=== PATIENT | female | born 1995 ===

== ENCOUNTER 2020-03-08 11:35 | Inpatient (IN) | payer OTHER ==
[2020-03-08] MEDS ORDERED: TERBUTALINE 1 MG/1 ML INJ IVP PRN (12:09)
[2020-03-08] MEDS ORDERED: fentaNYL 100 MCG/2 ML INJ IV PRN (12:09)
[2020-03-08] MEDS ORDERED: TERBUTALINE 1 MG/1 ML INJ SUB-Q PRN (12:09)
[2020-03-08] MEDS ORDERED: NalbUPHINE 10 MG/1 ML INJ IV PRN (12:09)
[2020-03-08] MEDS ORDERED: BUTORPHANOL 2 MG/1 ML INJ IV PRN ×2 (12:09)
[2020-03-08] MEDS ORDERED: MINERAL OIL 30 ML ORAL LIQD PO PRN (12:09)
[2020-03-08] MEDS ORDERED: ONDANSETRON 4 MG/2 ML INJ IV PRN (12:09)
[2020-03-08] MEDS ORDERED: LIDOCAINE (2%) 20 MG/1 ML VIAL 20 ML MDV INFILTRATI ONE (12:09)
[2020-03-08] MEDS ORDERED: ePHEDrine SULFATE 50 MG/1 ML INJ IV PRN (12:09)
[2020-03-08 12:40] LABS: Hematocrit 37.3 % (30.3-42.9); Hemoglobin 12.7 gm/dl (10.1-14.3); Mean Corpuscular HGB Conc 34 % (30-34); Mean Corpuscular Volume 87 fl (79-97); Platelet Count 302 K/mm3 (140-440); Red Blood Count 4.27 M/mm3 (3.65-5.03); Red Cell Distribution Width 13.6 % (13.2-15.2)
[2020-03-08] MEDS ORDERED: OXYTOCIN DRIP 30 UNITS/500 ML BAG IV SCH (13:00)
[2020-03-08] MEDS ORDERED: OXYTOCIN 20 UNIT/1000ML DRIP 20 UNITS/1,000 ML BAG IV SCH (13:00)
[2020-03-08] MEDS: LACTATED RINGERS 1,000 ML IV SCH ×2 (15:19→22:33)
[2020-03-08] MEDS ORDERED: MORPHINE 2 MG/1 ML INJ IM ONE (17:27)
--- NOTE | 2020-03-08 17:33 | History and Physical Report ---
History of Present Illness Date of examination: 03/08/20 Date of admission: 03/08/20 Chief complaint: Contractions History of present illness: 25yo G 2 P 1 0 0 1 @ 39 weeks 5 days here with c/o contractions. She reports +FMs but denies VB or LOF. Pt was 2.5/80/-2 per RN and was instructed to ambulate for 2 hrs. No cervical change noted after approximately 4 hours. Pt in severe distress and c/o dizziness and nausea. BP 81/42. She is a [facility] patient who initiated care at 6 weeks gestation. Her course is significant for anemia (on iron therapy). LABS: O pos, Antibody Screen neg, RI, VDRL NR, HBsAg neg, HIV neg, Ultrasound normal, MSAFP neg, Diabetes screen 111, GC/CT neg, GBS neg. Past History Past Medical History: no pertinent history Past Surgical History: no surgical history Family/Genetic History: heart disease (sister), hypertension (sister), other (thyroid dysfunction) Social history: , lives with family, full code. denies: smoking, alcohol abuse, prescription drug abuse, IV drug use - Obstetrical History Expected Date of Delivery: 03/10/20 Actual Gestation: 39 Week(s) 5 Day(s) : 2 Para: 1 Hx # Term Pregnancies: 1 Number of Pregnancies: 0 Spontaneous Abortions: 0 Induced : 0 Number of Living Children: 1 #1 Infant Gender: Male year: (08/2015) Birthweight: 3.941 kg (8 lbs 11 oz) Method of Delivery: Vaginal Gestational age at delivery: 39 Complications: none Medications and Allergies Allergies Allergy/AdvReac Type Severity Reaction Status Date / Time sulfamethoxazole Allergy Mild Itching Verified 03/08/20 12:08 [From Bactrim] trimethoprim [From Bactrim] Allergy Mild Itching Verified 03/08/20 12:08 Active Meds: Active Medications Butorphanol Tartrate (Stadol) 1 mg IV Q2H PRN PRN Reason: Labor Pain Butorphanol Tartrate (Stadol) 2 mg IV Q2H PRN PRN Reason: Pain , Severe (7-10) Ephedrine Sulfate (Ephedrine Sulfate) 10 mg IV Q2M PRN PRN Reason: Hypotension Fentanyl (Sublimaze) 100 mcg IV Q2H PRN PRN Reason: Labor Pain Oxytocin/Sodium Chloride (Pitocin/Ns 20 Unit/1000ml Drip) 20 units in 1,000 mls @ 125 mls/hr IV DIRECT SHUN Oxytocin/Sodium Chloride (Pitocin/Ns 30 Unit/500ml) 30 units in 500 mls @ 1 mls/hr IV TITR SHUN; Protocol Lactated Ringer's (Lactated Ringers) 1,000 mls @ 125 mls/hr IV DIRECT SHUN Last Admin: 03/08/20 15:19 Dose: 125 mls/hr Documented by: Mineral Oil (Mineral Oil) 30 ml PO QHS PRN PRN Reason: Constipation Morphine Sulfate (Morphine) 2 mg IM ONCE ONE Stop: 03/08/20 17:28 Nalbuphine HCl (Nalbuphine) 10 mg IV Q2H PRN PRN Reason: Pain, Moderate (4-6) Ondansetron HCl (Zofran) 4 mg IV Q8H PRN PRN Reason: Nausea And Vomiting Terbutaline Sulfate (Brethine) 0.25 mg SUB-Q ONCE PRN PRN Reason: Hyperstimulation/Hypertonicity Terbutaline Sulfate (Brethine) 0.25 mg IVP ONCE PRN PRN Reason: Hyperstimulation/Hypertonicity Review of Systems All systems: negative - Vital Signs Vital signs: Vital Signs Temp 98.0 F 03/08/20 12:18 Temp Pulse Resp BP Pulse Ox 98.0 F 97 H 104/60 98 03/08/20 12:18 03/08/20 17:23 03/08/20 17:08 03/08/20 17:23 - Obstetrical FHR: auscultation normal, category 1 FHR comments: baseline 120, moderate variability, 15x15 accels, no decels Cervical Dilatation: 2.5 Cervical Effacement Percentage: 60 station: -2 Uterine Contraction Pattern: Regular Results Result Diagrams: 03/08/20 12:00 Abnormal lab results 03/08/20 Range/Units 12:00 WBC 12.0 H (4.5-11.0) K/mm3 All other labs normal. Assessment and Plan - Patient Problems (1) 39 weeks gestation of Current Visit: Yes Status: Acute (2) Labor, false Current Visit: Yes Status: Acute Plan to address problem: Admit to L&D for therapeutic rest and routine labor orders Labor augmentation, if indicated Anticipate vaginal delivery (3) Symptomatic hypotension Current Visit: Yes Status: Acute Plan to address problem: IVF bolus given
[2020-03-09] MEDS: LACTATED RINGERS 1,000 ML IV SCH ×3 (04:45→07:46)
[2020-03-09] MEDS ORDERED: DEXMEDETOMIDINE 200 MCG/2 ML VIAL IV ONE (05:00)
[2020-03-09] MEDS ORDERED: NALOXONE 2 MG/2 ML INJ IV PRN (05:25)
[2020-03-09] MEDS ORDERED: ePHEDrine SULFATE 50 MG/1 ML INJ IV PRN (05:25)
--- NOTE | 2020-03-09 05:27 | Anesthesia Consultation ---
Anesthesia Consult and Med Hx Date of service: 03/09/20 - Airway Anesthetic Teeth Evaluation: Good ROM Head & Neck: Adequate Mental/Hyoid Distance: Adequate Mallampati Class: Class II Intubation Access Assessment: Good - Pulmonary Exam CTA: Yes - Cardiac Exam Cardiac Exam: RRR - Pre-Operative Health Status ASA Pre-Surgery Classification: ASA2, Emergency Proposed Anesthetic Plan: Epidural - Pulmonary Hx Asthma: No - Cardiovascular System Hx Hypertension: No - Hematic Hx Anemia: Yes - Other Systems Hx Alcohol Use: No
--- NOTE | 2020-03-09 05:29 | Progress Note ---
Labor Epidural - Labor Epidural Start Time: 05:02 Stop Time: 05:16 Performed by:: GUY WATSON Procedure: Patient is requesting a laboring epidural for laboring pain. Patient IDed, H&P reviewed, all questions and concerns were answered, and consent was signed. Timeout was performed at bedside. Patient in sitting position. Sterile prep and drape was performed. [3] ml of 1% lidocaine skin wheal at L[3]- L [4]. 18- gauge Touhy epidural needle was advanced to loss of resistance with air technique. Negative CSF negative blood. Epidural catheter advanced to [3] centimeters. [-] Aspiration [-] test dose. Sterile dressing applied. Patient tolerated procedure.
[2020-03-09] MEDS ORDERED: fentaNYL-BUPIV 2 MCG/ML-0.125% 200 MCG/100 ML BAG EPIDURAL ONE (05:38)
[2020-03-09] MEDS ORDERED: fentaNYL-BUPIV 2 MCG/ML-0.125% 200 MCG/100 ML BAG EPIDURAL SCH (06:00)
--- NOTE | 2020-03-09 07:09 | Event Note ---
Date: 03/09/20 S: Pt in left lateral position. Denies pain or discomfort. S/P epidural anesthesia. Spouse at bedside. O: FHR baseline 110, moderate variability, 15x15 accels, occ early decels UC q 2-4mins, palpate moderate SROM @ 4:35, clear. SVE 7/100/0. Forebag present & AROM @ 7:00 Pitocin @ 1 mu/min A: 25yo G 2 P 1 @ 39w6d Category I FHR Labor progressing well P: Continue current management Position changes [id number] Anticipate vaginal delivery
[2020-03-09] MEDS ORDERED: OXYTOCIN 10 UNIT/1 ML INJ IM ONE (08:30)
[2020-03-09] MEDS ORDERED: OXYTOCIN 10 UNIT/1 ML INJ ONE (08:44)
[2020-03-09] MEDS ORDERED: diphenhydrAMINE 25 MG CAP PO PRN (09:13)
[2020-03-09] MEDS ORDERED: LANOLIN/ZINC/DIMETHICONE (LANSINOH) 7 GM TP PRN (09:13)
--- NOTE | 2020-03-09 09:23 | Procedure Note ---
OB Delivery Note - Delivery Date of Delivery: 03/09/20 (0832) Surgeon: NEMO LAW (CNM) Estimated blood loss: 300cc - Vaginal Delivery presentation: vertex Delivery position: OA (MUMTAZ) Intrapartum events: other(please specify) (Rt compound hand) Delivery induction: none Delivery augmentation: pitocin Delivery monitor: external FHT, external uterine Route of delivery: Delivery placenta: spontaneous (0837) Delivery cord: 3 umbilical vessels, other (cord around rt arm x 1) Episiotomy: none Delivery laceration: 1st degree (no repair required) Anesthesia: epidural Delivery comments: of viable, crying male , placed directly on maternal abdomen. Cord double clamped, cut by FOB after cessation of pulsation. Cord blood collected and sent to lab. Placenta spontaneously delivered, disposed per hospital policy. Uterus firm @ U-2. Pitocin 10mu IM x 1. Perineum with 1st degree laceration, no repair required, hemostasis maintained. Mother and baby safe, stable and left in care of RN. - A at 5 minutes: 9 Gender: Male (Weight: 3433 gms (7lbs 9ozs) 19.5 inches)
[2020-03-09] MEDS ORDERED: PROMETHAZINE 25 MG TAB PO PRN (10:00)
[2020-03-09] MEDS ORDERED: ONDANSETRON 4 MG/2 ML INJ IV PRN (10:00)
[2020-03-09] MEDS ORDERED: WITCH HAZEL/ GLYCERIN PAD TP PRN (10:00)
[2020-03-09] MEDS: FERROUS SULFATE 325 MG TAB PO SCH (11:39)
[2020-03-09] MEDS: PRENATAL VIT27-FE FUMARATE-FOLIC ACID VIT TAB PO SCH (11:39)
[2020-03-09] MEDS: IBUPROFEN 600 MG TAB PO SCH ×3 (11:39→21:46)
[2020-03-09] MEDS: oxyCODONE /ACETAMINOPHEN 5-325MG TAB PO PRN (16:38)
--- NOTE | 2020-03-09 17:15 | Post Anesthesia Evaluation ---
- Post Anesthesia Evaluation Patient Participated: Yes Airway Patent: Yes Stable Respiratory Function: Yes Nausea/Vomiting: No Temp > 96.8F: Yes Pain Manageable: Yes Adequeate Hydration: Yes Anesthesia Complications: No Block Receding Appropriately: Yes Patient on Ventilator: No
[2020-03-09 20:50] LABS: Hematocrit 29.5 % (30.3-42.9)
[2020-03-09] MEDS ORDERED: MAGNESIUM HYDROXIDE (MOM) ORAL LIQD UDC PO PRN (22:00)
[2020-03-10] MEDS: IBUPROFEN 600 MG TAB PO SCH (07:00)
[2020-03-10] MEDS: oxyCODONE /ACETAMINOPHEN 5-325MG TAB PO PRN (08:17)
[2020-03-10] MEDS: FERROUS SULFATE 325 MG TAB PO SCH (10:30)
[2020-03-10] MEDS: PRENATAL VIT27-FE FUMARATE-FOLIC ACID VIT TAB PO SCH (10:30)
--- NOTE | 2020-03-10 11:19 | Progress Note ---
Assessment and Plan A: PP Day #1 Stable P: Follow Routine Orders D/C home today per patient request RTO in 6 Weeks Subjective - Subjective Date of service: 03/10/20 Patient reports: appetite normal, voiding normally, pain well controlled, f latus, ambulating normally : doing well Objective - Vital Signs Latest vital signs: Vital Signs Temp Pulse Resp BP BP Pulse Ox 03/10/20 09:07 97.5 F L 85 18 97/42 98 03/10/20 08:17 20 03/10/20 07:00 20 03/10/20 01:09 98.6 F 77 120/89 03/09/20 16:38 18 03/09/20 15:45 98.2 F 93 H 20 114/61 03/09/20 11:20 98.4 F 93 H 20 136/72 100 Intake and Output 03/09/20 03/10/20 03/10/20 22:59 06:59 14:59 Intake Total 800 Output Total 1100 Balance -300 Intake: Oral 800 Output: Urine 1100 Void 1100 Other: Total, Intake Amount 200 Total, Output Amount 200 # Voids Void 1 1 # Bowel Movements 1 - Exam Breasts: Present: normal Cardiovascular: Present: Regular rate Lungs: Present: Clear to auscultation, Normal air movement Abdomen: Present: normal appearance, soft, normal bowel sounds Uterus: Present: normal, firm, fundal height below umbilicus Extremities: Present: normal - Labs Labs: Abnormal lab results 03/09/20 Range/Units 20:24 Hgb 10.0 L (10.1-14.3) gm/dl Hct 29.5 L D (30.3-42.9) %
--- NOTE | 2020-03-10 11:21 | Discharge Summary ---
Providers - Providers Date of Admission: 03/09/20 09:08 Date of discharge: 03/10/20 Attending physician: SOFIA GANT MD Primary care physician: SOFIA GANT MD Hospitalization Reason for admission: active labor Delivery: Episiotomy: none Laceration: 1st degree Other procedures: none complications: none Discharge diagnosis: IUP at term delivered [place] baby: male Condition at discharge: Good Disposition: DC-01 TO HOME OR SELFCARE Plan - Provider Discharge Summary Activity: routine, no sex for 6 weeks, no heavy lifting 4 weeks, no strenuous exercise Diet: routine Instructions: routine Additional instructions: [] Smoking cessation referral if applicable(refer to patient education folder for contact #) [] Refer to [facility]'s [facility] Booklet Call your doctor immediately for: * Fever > 100.5 * Heavy vaginal bleeding ( >1 pad per hour) * Severe persistent headache * Shortness of breath * Reddened, hot, painful area to leg or breast * Drainage or odor from incision. * Keep incision clean and dry at all times and follow doctor's instructions regarding bathing/showering - Follow up plan Follow up: SOFIA GANT MD [Primary Care Provider] - 6 Weeks
[2020-03-10 13:54] VITALS: BP 136/78
== END 2020-03-10 13:54 | disposition home or self-care (01) | DRG 805 ==
LOC: TRG 11:35 → APU 11:37 → TRG 12:09 → LD 17:46 → OB 03-09 11:24
PROVIDERS: ADMIT Obstetrics & Gynecology; ATTEND Obstetrics & Gynecology
PROC: 10E0XZZ Delivery of Products of Conception, External Approach (ICD-10-PCS; principal; 2020-03-09)
PROC: 3E0R3BZ Introduction of Anesthetic Agent into Spinal Canal, Percutaneous Approach (ICD-10-PCS; 2020-03-09)
PROC: 00HU33Z Insertion of Infusion Device into Spinal Canal, Percutaneous Approach (ICD-10-PCS; 2020-03-09)
DX: O69.89X0 Labor and delivery complicated by other cord complications, not applicable or unspecified (principal); O99.42 Diseases of the circulatory system complicating childbirth; Z37.0 Single live birth; O80 Encounter for full-term uncomplicated delivery; Z3A.39 39 weeks gestation of pregnancy; Z82.49 Family history of ischemic heart disease and other diseases of the circulatory system; Z88.8 Allergy status to other drugs, medicaments and biological substances; Z88.2 Allergy status to sulfonamides; O70.0 First degree perineal laceration during delivery; I95.9 Hypotension, unspecified
CPT/HCPCS: 36415; 59025; 85014; 85018; 85027; 86592; 86850; 86900; 86901; G0378; A6250; J2270; J2405; J2590; J3010; J3490; J7120